=== PATIENT | female | born 1950 | race Caucasian/White ===

== ENCOUNTER → 2023-09-29 | Outpatient (CLI) | payer MEDICARE ==
[~2023-09-29] MED LIST: ASPI-556 PO; CHOL20004 PO; FISH OIL PO; IOHEXOL 350 MG/ML 100ML INFUS..BTL IV ONE; IRON PO; MULT-1258 PO; SUMA50TA PO; TIMO1DRO2 OU; TRAV2.5D OU
== END | disposition home or self-care (01) ==
LOC: RAH 11:16
PROVIDERS: ATTEND Internal Medicine Cardiovascular Disease
DX: I20.9 Angina pectoris, unspecified (principal); M47.815 Spondylosis without myelopathy or radiculopathy, thoracolumbar region
CPT/HCPCS: 75574; Q9967